=== PATIENT | female | born 1975 | race Caucasian/White ===

== ENCOUNTER 2016-12-29 15:36 | Emergency (ER) | payer OTHER ==
[~2016-12-29] VITALS: Ht 152.4 cm; Wt 79.5 kg
[2016-12-29 15:38] VITALS: Ht 152.4 cm; Wt 79.5 kg
[2016-12-29] MEDS ORDERED: BELLADONNA/PHENOBARBITAL TAB PO STA (16:13)
[2016-12-29] MEDS ORDERED: LIDOCAINE/MYLANTA 40 ML BTL PO STA (16:13)
[2016-12-29] MEDS ORDERED: FAMOTIDINE 20 MG TAB PO STA (16:13)
[2016-12-29 16:30] LABS: ADD SCAN DIFF NO
[2016-12-29 16:34] LABS: BASOPHILS % 0.4 % (0.0-2.0); EOSINOPHILS # 0.2 10^3/ul (0.0-0.5); HEMATOCRIT 42.1 % (37.0-47.0); LYMPHOCYTES # 3.3 10^3/ul (0.8-2.9); LYMPHOCYTES % 33.3 % (15.0-51.0); MEAN CORPUSCULAR HEMOGLOBIN 28.2 pg (29.0-33.0); MEAN CORPUSCULAR HGB CONC 33.3 g/dl (32.0-37.0); MEAN CORPUSCULAR VOLUME 84.7 fl (82.0-101.0); MEAN PLATELET VOLUME 9.6 fl (7.4-10.4); MONOCYTE # 0.8 10^3/ul (0.3-0.9); MONOCYTES % 7.9 % (0.0-11.0); NEUTROPHIL # 5.6 10^3/ul (1.6-7.5); NEUTROPHILS % 55.8 % (39.0-77.0); PLATELET COUNT 346 10^3/UL (140-415); RED BLOOD COUNT 4.97 10^6/ul (4.20-5.40); RED CELL DISTRIBUTION WIDTH 12.6 % (11.5-14.5)
[2016-12-29 16:47] LABS: ALBUMIN/GLOBULIN RATIO 1.51; BILIRUBIN,INDIRECT 0.1 mg/dl (0-1.1); BILIRUBIN,TOTAL 0.1 mg/dl (0.2-1.3); CREATININE 0.7 mg/dl (0.44-1.00); INR 0.95; POTASSIUM 4.8 mmol/L (3.5-5.1); PROTIME 12.7 Sec (12.2-14.2); TOTAL PROTEIN 8.3 g/dl (6.1-8.1)
[2016-12-29 16:48] LABS: PARTIAL THROMBOPLASTIN TIME 27.5 Sec (25.0-35.0)
--- NOTE | 2016-12-29 17:00 | RADRPT ---
PROCEDURE: US Abdomen. CLINICAL INDICATION: abdominal pain TECHNIQUE: Multiple real-time images were acquired of the patient's right upper quadrant abdomen a nd retroperitoneum utilizing a high resolution transducer. COMPARISON: None FINDINGS: The liver demonstrates increased echogenicity. The liver is enlarged in size and no focal solid les ions are seen. The liver measures 19.9 cm in length. The portal vein is patent with normal direction of flow. No intrahepatic biliary dilatation is seen. No gallstones are identified within the gallbladder. There is no pericholecystic fluid or gallbladd er wall thickening. The common bile duct measures 3 mm in maximal dimension. The pancreas is not seen due to overlying bowel gas. No free fluid is identified. The right kidney is normal in size, and demonstrate normal echogenicity and cortical thickness. The right kidney measures 10.8 cm in long dimension. There is no evidence of hydronephrosis. There are no kidney stones. RPTAT: AA IMPRESSION: No evidence of gallstones. Hepatomegaly with diffuse fatty infiltration of the liver. .Vickey Wilkes MD, Date Time Electronically viewed and signed by .Vickey Wilkes MD, on 12/29/2016 17:00 .S/
[2016-12-29] MEDS ORDERED: OMEP20CA16 PO (17:22)
--- NOTE | 2016-12-29 17:25 | ERD ---
ER Documentation Chief Complaint Date/Time DATE: 12/29/16 TIME: 17:22 Chief Complaint AP WITH NAUSEA X 2 WEEKS HPI 41-year-old female who presents with approximately 2 weeks of symptoms that include epigastric abdominal discomfort with associated nausea. Subjective fevers during this timeframe. The patient denies any postprandial symptoms. She denies any significant nocturnal symptoms. She denies any chest pain, no pleuritic pain, no dysuria urgency or frequency. ROS All systems reviewed and are negative except as per history of present illness. Medications Home Meds Active Scripts Omeprazole* (Omeprazole*) 20 Mg Capsule., 20 MG PO DAILY, #30 Prov:DELISA MOLINA MD 12/29/16 PMhx/Soc Medical and Surgical Hx: pt denies Medical Hx, pt denies Surgical Hx Hx Alcohol Use: No Hx Substance Use: No Hx Tobacco Use: No Smoking Status: Never smoker FmHx Family History: No diabetes Physical Exam Vitals Vital Signs Date Time Temp Pulse Resp B/P Pulse Ox O2 Delivery O2 Flow Rate FiO2 12/29/16 15:38 98.2 98 18 154/94 99 Physical Exam General: Well developed, well nourished, no acute distress Head: Normocephalic, atraumatic. Eyes: Pupils equally reactive, EOM intact ENT: Moist mucous membranes Neck: Supple, no lymphadenopathy Respiratory: Lungs clear bilaterally, no distress Cardiovascular: RRR, no murmurs, rubs, or gallops Abdominal: Soft, very slight epigastric tenderness, negative Avalos sign, no peritonitis : Deferred MSK: No edema, no unilateral swelling, 5/5 strength Neurologic: Alert and oriented, moving all extremities, normal speech, no focal weakness, no cerebellar signs Skin: No rash Psych: Normal mood Result Diagram: 12/29/16 1621 12/29/16 1621 Results 24 hrs Laboratory Tests Test 12/29/16 16:21 White Blood Count 10.010^3/ul Red Blood Count 4.9710^6/ul Hemoglobin 14.0g/dl Hematocrit 42.1% Mean Corpuscular Volume 84.7fl Mean Corpuscular Hemoglobin 28.2pg Mean Corpuscular Hemoglobin Concent 33.3g/dl Red Cell Distribution Width 12.6% Platelet Count 61414^3/UL Mean Platelet Volume 9.6fl Neutrophils % 55.8% Lymphocytes % 33.3% Monocytes % 7.9% Eosinophils % 2.0% Basophils % 0.4% Nucleated Red Blood Cells % 0.0/100WBC Neutrophils # 5.610^3/ul Lymphocytes # 3.310^3/ul Monocytes # 0.810^3/ul Eosinophils # 0.210^3/ul Basophils # 0.010^3/ul Nucleated Red Blood Cells # 0.010^3/ul Prothrombin Time 12.7Sec Prothrombin Time Ratio 1.0 INR International Normalized Ratio 0.95 Activated Partial Thromboplast Time 27.5Sec Sodium Level 138mmol/L Potassium Level 4.8mmol/L Chloride Level 102mmol/L Carbon Dioxide Level 26mmol/L Anion Gap 15 Blood Urea Nitrogen 19mg/dl Creatinine 0.70mg/dl Glucose Level 109mg/dl Calcium Level 10.0mg/dl Total Bilirubin 0.1mg/dl Direct Bilirubin 0.00mg/dl Indirect Bilirubin 0.1mg/dl Aspartate Amino Transf (AST/SGOT) 25IU/L Alanine Aminotransferase (ALT/SGPT) 55IU/L Alkaline Phosphatase 84IU/L Total Protein 8.3g/dl Albumin 5.0g/dl Globulin 3.30g/dl Albumin/Globulin Ratio 1.51 Lipase 88U/L Serum HCG, Qualitative NEGATIVE Current Medications Medications (Trade) Dose Ordered Sig/Noemí Route PRN Reason Start Time Stop Time Status Last Admin Dose Admin Famotidine (Pepcid) 20 mg ONCE STAT PO 12/29/16 16:13 12/29/16 16:15 DC 12/29/16 16:18 Miscellaneous Medication (Gi Cocktail (2)) 40 ml ONCE STAT PO 12/29/16 16:13 12/29/16 16:14 DC 12/29/16 16:18 Belladonna/ Phenobarbital () 2 tab ONCE STAT PO 12/29/16 16:13 12/29/16 16:14 DC 12/29/16 16:18 Procedures/MDM EKG, MONITORS, & DIAGNOSTIC IMAGING: Gallbladder ultrasound: No evidence of acute cholecystitis LAB INTERPRETATION: No leukocytosis, no hepatobiliary obstruction. MEDICAL DECISION MAKING: The patient presents with epigastric abdominal pain. Broad differential but most likely GI process such as gastritis versus peptic ulcer disease. Consider biliary colic, no signs of acute cholecystitis, pancreatitis or cardiopulmonary process. ER COURSE: The patient was given a GI cocktail with complete resolution of symptoms. Her laboratory testing is unrevealing and ultrasound is unrevealing. At this time this is again most likely GI process. Outpatient GI follow-up or endoscopy would be reasonable. Trial of PPI would also be reasonable. Return precautions discussed including fevers, worsening pain. Patient describes understanding. I kept the patient and/or family informed of laboratory and diagnostic imaging results throughout the emergency room course. DISPOSITION PLAN: We discussed follow up with the patient's primary care doctor within 24 to 48 hours as needed. We also discussed return to the emergency room for worsening symptoms or worsening condition. Outpatient referral: Gastroenterology Discharge Medications: Prilosec Departure Diagnosis: Primary Impression: Abdominal pain Abdominal location: epigastric Qualified Code: R10.13 - Epigastric pain Condition: Stable Patient Instructions: Abdominal Pain Referrals: THUY JAY (PCP) HERMINIA SHOOK MD, MORDO MD Additional Instructions: Call your primary care doctor TOMORROW for an appointment during the next 1 WEEK.Tell the assistant secretary that you were referred from this facility.See the doctor sooner or return here if your condition worsens before your appointment time. DELISA MOLINA MD Dec 29, 2016 17:25
[2016-12-29 17:29] VITALS: BP 141/85; PULSE 77; RESP 17; TEMP 98.2
== END 2016-12-29 17:29 | disposition home or self-care (01) ==
LOC: FTE 15:36
DX: R10.13 Epigastric pain (principal)
CPT/HCPCS: 76705; 80053; 83690; 84703; 85025; 85610; 85730; Z7610; 36415